=== PATIENT | female | born 1985 | race Caucasian/White ===

== ENCOUNTER → 2018-05-05 | Outpatient (CLI) | payer OTHER ==
[~2018-05-05] MED LIST: PENVK500 PO
[2018-05-05 19:22] LABS: Influenza A Positive (NEGATIVE); Influenza B Negative (NEGATIVE)
== END | disposition home or self-care (01) ==
LOC: LAB 16:51 → LAB SHORT 16:51
PROVIDERS: Hospitalist
DX: R05 Cough (principal); R50.9 Fever, unspecified
CPT/HCPCS: 87804

== ENCOUNTER → 2019-02-16 | Outpatient (CLI) | payer OTHER ==
[2019-02-16 16:34] LABS: Hemoglobin 16.5 g/dL (11.5-16.0); Mean Corpuscular HGB Conc 31.7 g/dL (31.5-36.5); Mean Corpuscular Volume 88 fL (80-100); Mean Platelet Volume 10.3 fL (9.1-12.4); Platelet Count 217 K/mm3 (150-400); RDW Coefficient Variation 13.9 % (11.7-14.2); RDW Standard Deviation 44.9 fL (35.1-46.3); Red Blood Cell Count 5.89 M/mm3 (3.80-5.20); White Blood Cell Count 7.41 K/mm3 (4.00-11.30)
== END | disposition home or self-care (01) ==
LOC: LAB SHORT 15:50 → LAB 15:50
PROVIDERS: Internal Medicine Hematology & Oncology
DX: R71.8 Other abnormality of red blood cells (principal)
CPT/HCPCS: 85027

== ENCOUNTER 2019-11-10 08:09 | Day surgery (SDC) | payer OTHER ==
[~2019-11-10] VITALS: Ht 188 cm; Wt 185.0 kg
[~2019-11-10 08:09] MED LIST changes: +ESTARYLLA 0.251 EACH PO; +FURO40 PO; +POTASSIUM CHLO20 ME2 PO
[2019-11-10] MEDS ORDERED: HYDURE500 PO (08:58)
--- NOTE | 2019-11-10 10:30 | NUR ---
PT BACK TO RECOVERY ROOM VIA RECLINER AFTER PROCEDURE. AWAKE AND ALERT, DENIES ANY PAIN OR DISCOMFORT. VSS. MOTHER AT BEDSIDE, CALL LIGHT IN REACH.
--- NOTE | 2019-11-10 11:10 | NUR ---
PT EATING BREAKFAST, CONTINUES TO VISIT WITH MOTHER. DENIES NEEDS. CALL LIGHT IN REACH.
== END 2019-11-10 12:30 | disposition home or self-care (01) ==
LOC: MHTC 08:09
PROC: B206YZZ Plain Radiography of Right and Left Heart using Other Contrast (ICD-10-PCS; principal; 2019-11-10)
PROC: 4A023N8 Measurement of Cardiac Sampling and Pressure, Bilateral, Percutaneous Approach (ICD-10-PCS; principal; 2019-11-10)
PROC: B201YZZ Plain Radiography of Multiple Coronary Arteries using Other Contrast (ICD-10-PCS; principal; 2019-11-10)
DX: R07.9 Chest pain, unspecified (principal); I27.20 Pulmonary hypertension, unspecified; I10 Essential (primary) hypertension; E66.01 Morbid (severe) obesity due to excess calories; I07.1 Rheumatic tricuspid insufficiency; D45 Polycythemia vera; R94.31 Abnormal electrocardiogram [ECG] [EKG]; Z79.899 Other long term (current) drug therapy; Z68.43 Body mass index [BMI] 50.0-59.9, adult; Z87.891 Personal history of nicotine dependence
CPT/HCPCS: 76937; 93005; 93010; 93308; 93460; 99152; C1769; C1894; J1644; J2250; J3010; J7030; J7050; Q9967

== ENCOUNTER 2019-11-22 08:09 | Day surgery (SDC) | payer OTHER ==
[~2019-11-22] VITALS: Ht 187.9 cm; Wt 190.0 kg
[~2019-11-22 08:09] MED LIST changes: +HYDURE500 PO
--- NOTE | 2019-11-22 10:00 | NUR ---
0950 POST KRISTINE PROCEDURE. VVS. PATIENT WAKING AND ASKING QUESTIONS. REMEMBERS SOME OF THE EVENTS BUT NOT ALL. NO BLEEDING NOTED. PATIENT PLACED ON ROOM AIR AND SATURATION REMAINS CHRONICALLY LOW IN THE UPPER 85-90%. NO PAIN NOTED FROM THE PATIENT. DR. BEARD OUT TO SPEAK WITH FAMILY.
--- NOTE | 2019-11-22 10:45 | NUR ---
1030 DR. BEARD AT THE BEDSIDE AND SPOKE WITH THE PATIENT AND FAMILY. HE EXPLAINED THAT THE KRISTINE DID REVEAL AN ASD. THE PATIENT REQUIRES A CARDIAC MRI NEXT. WHICH WILL BE SET UP BY DR. LILLY OFFICE. PIV REMOVED. CATHETER TIP INTACT AND PRESSURE DRESSING APPLIED. DISCHARGE INSTRUCTIONS REVIEWED WITH THE PATIENT AND FAMILY AND ALL QUESTIONS ANSWERED. PATIENT IS TAKING ICE CHIPS WITHOUT DIFFICULTY AND AND ABLE TO SWALLOW. NO BLOOD NOTED AND NO PAIN TO THE THROAT. DISCHARGED HOME WITH FAMILY.
== END 2019-11-22 22:41 | disposition home or self-care (01) ==
LOC: MHTC 08:09
DX: Q21.1 Atrial septal defect (principal); I27.20 Pulmonary hypertension, unspecified; I10 Essential (primary) hypertension; E66.01 Morbid (severe) obesity due to excess calories; D45 Polycythemia vera; I07.1 Rheumatic tricuspid insufficiency; Z79.899 Other long term (current) drug therapy; Z87.891 Personal history of nicotine dependence; Z68.43 Body mass index [BMI] 50.0-59.9, adult
CPT/HCPCS: 93312; 93325; J1200; J2250; J2405; J3010; J7040